=== PATIENT | female | born 1950 | race Caucasian/White ===

== ENCOUNTER → 2016-07-29 | Outpatient (CLI) | payer OTHER, BC ==
--- NOTE | 2016-07-29 14:46 | MAMMOGRAPHY REPORT ---
BILATERAL DIGITAL DIAGNOSTIC MAMMOGRAM TOMOSYNTHESIS WITH CAD AND TARGETED RIGHT ULTRASOUND: 07/30/19 17 CLINICAL HISTORY: 66-year-old woman presents for one-year follow-up of probably benign 4.6 mm nodula r asymmetry projecting over the inferior right pectoralis muscle on the MLO view. Also time of renetta al bilateral screening exam. TECHNIQUE: Breast tomosynthesis in addition to standard 2D mammography was performed. Current study was also evaluated with a Computer Aided Detection (CAD) system. COMPARISON: Comparison is made to exams dated: 01/29/2016 ultrasound, 01/29/2016 mammogram, 07/27/19 16 mammogram, 07/17/2015 mammogram, 07/14/2014 mammogram, and 07/13/2013 mammogram - [facility]. BREAST COMPOSITION: The tissue of both breasts is almost entirely fatty. FINDINGS: There is a circumscribed, 4.2 x 4.7 mm mass with posterior notch in the far posterior sli ghtly superior right breast, projecting over the pectoralis muscle on the MLO view. The circumscrib ed margins are best appreciated on the tomosynthesis images. When comparing back to prior mammogram s, this mass appears stable in size dating back to 07/17/2015, at which time it measured 4.6 x 3.9 m m on standard 2-D views. There is no evidence of a new suspicious mass, focal area of architectural distortion, developing asymmetry or new microcavitation indications bilaterally. There are diffuse bilateral benign-appearing rounded rim calcifications in the breasts. Repeat targeted ultrasound was performed in the superior right breast. However, no discrete solid o r cystic mass is identified. IMPRESSION: ACR-BI-RADS CATEGORY 3: PROBABLY BENIGN, TARGETED ULTRASOUND ACR-BI-RADS CATEGORY 3: [place] OBABLY BENIGN A small, 4.7 mm circumscribed mass in the far posterior right breast, projecting over the pectoralis muscle on the MLO view has not significantly changed in size comparing today 07/17/2015 mammogram a nd with 1 year of stability is most likely benign. This could represent an intramammary lymph node, although no correlate was seen on ultrasound. However, longer stability is needed and another 12 m onth follow-up diagnostic mammogram with possible repeat ultrasound is recommended to ensure stabili ty. Bilateral mammography is also due at that time. These results and recommendations were discussed with the patient at the time of the exam. Approximately 10% of breast cancers are not detected with mammography. A negative mammographic repor t should not delay biopsy if a clinically suggestive mass is present. Marley Irby M.D. ay/:07/29/2016 13:29:48 Maintenance Mechanic Engine: Tereza CASAS(Milka)(Silke), [facility] letter sent: Follow Up Recommended 3 BI-RADS Code: ACR-BI-RADS Category 3: Probably Benign Ultrasound BI-RADS: ACR-BI-RADS Category 3: P robably Benign
== END | disposition home or self-care (01) ==
LOC: C.MAMM 10:52
PROVIDERS: ATTEND Student in an Organized Health Care Education/Training Program
DX: N63 Unspecified lump in breast (principal)

== ENCOUNTER → 2017-07-29 | Outpatient (CLI) | payer OTHER, BC ==
--- NOTE | 2017-07-29 15:05 | MAMMOGRAPHY REPORT ---
BILATERAL DIGITAL DIAGNOSTIC MAMMOGRAM TOMOSYNTHESIS WITH CAD: 07/29/2017 CLINICAL HISTORY: Close follow-up of a small 5 mm circumscribed mass in the far posterior and superio r right breast on the MLO view, which had been stable for at least one year and could represent a gladys ign lymph node. Also due for annual bilateral screening mammography. TECHNIQUE: Bilateral breast tomosynthesis in addition to standard 2D mammography was performed. Curre nt study was also evaluated with a Computer Aided Detection (CAD) system. COMPARISON: Comparison is made to exams dated: 07/29/2016 ultrasound, 07/29/2016 mammogram, 01/29/2016 mammogram, 07/27/2015 mammogram, 07/17/2015 mammogram, and 07/14/2014 mammogram - [facility]. BREAST COMPOSITION: There are scattered areas of fibroglandular density in both breasts. FINDINGS: There are diffuse bilateral punctate micro calcifications, stable compared to prior mammogr ams. Again noted on the right MLO tomosynthesis images is a small, 4.6 mm lobulated and circumscribe d mass projecting over the right inferior pectoralis muscle on the MLO view. No associated sap hana architect ural distortion or calcification. When comparing back to all available prior mammograms, this is sta ble in size and visual appearance dating back to at least 07/27/2015, and is now considered benign giv en at least 2 years of stability. No further close follow-up is needed at this time. No new suspici ous mass, asymmetry, architectural distortion or cluster of suspicious microcalcifications is seen. IMPRESSION: ACR BI-RADS CATEGORY 2: BENIGN A 5 mm lobulated and circumscribed mass in the superior posterior right breast, projecting over the p ectoralis muscle on the MLO view has been stable for at least 2 years mammographically, best seen on tomosynthesis images, and is therefore considered benign. No further close follow-up is needed at th is time. No other suspicious abnormality or interval change detected mammographically. There is no mammographic evidence of malignancy in the breasts. Therefore, recommend routine screening mammograp hy in 1 year. Approximately 10% of breast cancers are not detected with mammography. A negative mammographic report should not delay biopsy if a clinically suggestive mass is present. Marley Irby M.D. ay/:07/29/2017 11:00:26 Administrative Support Specialist: Alta CASAS(Milka)(M), [facility] letter sent: Normal 1/2 BI-RADS Code: ACR BI-RADS Category 2: Benign
== END | disposition home or self-care (01) ==
LOC: C.MAMM 10:30
PROVIDERS: ATTEND Student in an Organized Health Care Education/Training Program
DX: R92.8 Other abnormal and inconclusive findings on diagnostic imaging of breast (principal); N63.10 Unspecified lump in the right breast, unspecified quadrant